=== PATIENT | male | born 1945 | race Caucasian/White ===

== ENCOUNTER 2018-09-30 00:58 | Inpatient (IN) | payer OTHER ==
[~2018-09-30] VITALS: Ht 152.4 cm; Wt 74.9 kg
[2018-09-30] MEDS ORDERED: NORVASC5 MG PO (03:00)
[2018-09-30] MEDS ORDERED: ASPIR 8181 MG PO (03:00)
[2018-09-30] MEDS ORDERED: VITAMIN D1000 UNI1 PO (03:00)
[2018-09-30] MEDS ORDERED: LISINOPRIL40 MG PO (03:01)
[2018-09-30] MEDS ORDERED: HYDROCHLOROTH12.5 M1 PO (03:01)
[2018-09-30] MEDS ORDERED: TOPROL XL100 MG PO (03:02)
[2018-09-30] MEDS ORDERED: CENTRUM SILVER1 EAC2 PO (03:02)
[2018-09-30] MEDS ORDERED: STIOLTO RESPIMAT4 GM INH (03:03)
[2018-09-30] MEDS ORDERED: CRESTOR20 MG PO (03:04)
--- NOTE | 2018-09-30 03:39 | NUR ---
PT ADMITTED PER CART FROM [facility]. FAMILY BROUGHT HIM TO ER DUE TO INCREASED CONFUSION AND MEMORY PROBLEMS. NO HX OF MENTAL PROBLEMS IN THE PAST. NO HX OF SUBSTANCE ABUSE. HE HAS NO PHYSICAL COMPLAINTS, AND DENIES ANY CHANGES IN DIET OR SLEEP PATTERN. CHANGES IN BEHAVIOR STARTED AT THE END OF AUGUST. PT ESCORTED AND DAUGHTER OUT OF THE HOUSE AND LOCKED THEM OUT. THEY TOOK CAR KEYS AWAY FROM HIM BECAUSE THIS CAUSED THEM CONCERN, IT WAS NEW BEHAVIOR. SETTLED PT IN ROOM, AND HE IS CURRENTLY SLEEPING.
[2018-09-30 07:00] VITALS: BP 126/68
--- NOTE | 2018-09-30 10:58 | NUR ---
RESTLESS/ANXIOUS THIS AM. PACING IN HALLWAYS-ASKING ABOUT SHOES SEVERAL TIMES DESPITE BEING INFORMED THAT THEY HAVE BEEN LOCKED UP D/T JEFF STATING A FEW MINUTES AFTER BEING TOLD THIS "THEY MUST BE IN MY ROOM THEY AREA THREE HUNDRED DOLLAR PAIR OF SHOES" ORIENTED TO DATE,PLACE-AWARE HE IS IN HOSPITAL BUT UNABLE/UNWILLING TO RECOUNT EVENTS LEADING TO HOSPITILIZATION STATING "ITS ALL REALLY FUZZY-I'M NOT SURE" DENIES C/O PAIN/DISCOMFORT"
[2018-09-30 22:15] VITALS: BP 137/74
--- NOTE | 2018-10-01 00:54 | NUR ---
PATIENT VERY CONFUSED AND THOUGHTS SCATTERED. WHEN FIRST ARRIVED ON SHIFT AND WENT AND SAW PATIENT HE HAD A SHORTS ON AND A TOWEL WRAPPED AROUND HIS WAIST IN HIS ROOM. HE STATES HE WAS GOING TO TAKE A SHOWER. HE WENT ON TO TALK AND STATED HE DIDN'T UNDERSTAND WHY HE NEEDED TO KEEP HIS DOOR OPEN WHEN HE IS STAYING IN A HOTEL. HE IS DISORIENTED TO PLACE, TIME AND SITUATION. AT MIDNIGHT PATIENT WALKED INTO A FEMALE PATIENT'S ROOM AND THOUGHT SHE WAS HIS . HE WAS RETRIEVED AND WALKED BACK TO HIS ROOM. HE DID NOT TOUCH OR HARM FEMALE PATIENT. HE STATES HE WAS GETTING HIS . I EXPLAINED TO HIM THAT SHE IS NOT HERE AT THE MOMENT AND HE IS IN THE HOSPITAL. TUCKED PATIENT BACK INTO BED AND HE FELL BACK TO SLEEP. PATIENT IS CONFUSED AND SKIPS FROM ONE THOUGHT TO ANOTHER AND THEN GOES BACK TO THINKING HE IS STAYING IN A HOTEL AND HE IS ON THE ROAD WORKING. WILL CONTINUE TO MONITOR.
--- NOTE | 2018-10-01 04:42 | NUR ---
PATIENT UP PACING IN ROOM. HE PUT HIS DAY CLOTHES ON AND THIS NURSE WALKED HIM OUT TO THE DINING ROOM. HE THEN DECIDED THERE WASN'T ANYTHING HE WANTED TO DO SO WALKED HIM BACK TO HIS ROOM AND HE LAID BACK DOWN TO SLEEP. PATIENT HAS HAD LOTS OF BROKEN SLEEP TONIGHT. HE HAS GOTTEN UP AT LEAST 4 TIMES AND WOULD GO BACK TO SLEEP WHEN PUT BACK IN BED BUT DOESN'T STAY ASLEEP LONG. PATIENT CONFUSED BUT COOPERATIVE AND EASILY REDIRECTED. CONTINUE TO MONITOR.
[2018-10-01 07:58] VITALS: BP 127/69
--- NOTE | 2018-10-01 11:55 | NUR ---
ASSUMED PATIENT CARE AT 0700. PATIENT UP TO DR PER SELF. ATE 100% OF BREAKFAST, COMPLIANT WITH MEDICATIONS. NO BEHAVIORS, ATTENDED AND PARTICIPATED IN GROUP THIS AM. READING BOOK WHILE SITTING AT DR TABLE AT THIS TIME, [facility].
[2018-10-01 20:16] VITALS: BP 181/76
--- NOTE | 2018-10-02 00:16 | NUR ---
PATIENT UP IN DAY ROOM INTERACTING WITH THREE OTHER PEERS STATING 'I HOPE I DONT MISS MY FLIGHT.' AFTER ONE TO ONE ENCOURAGEMENT TO TRY AND REST, THIS NURSE ADMINISTERED PRN TRAZODONE ORDERED FOR INSOMNIA.
--- NOTE | 2018-10-02 02:26 | NUR ---
NURSES NOTE - CARE OF PATIENT ACQUIRED AT 1900. UPON INITIAL GREETING HE APPEARS WITH A FLAT, BLUNT, CONSTRICTED AFFECT. DURING QUESTIONS AND PHYSICAL EXAM HE APPEARS CONFUSED, ALERT AND ORIENTED X1-2. HE HAS JOINED TWO OTHER PEERS AND HAVE BEEN UP MOST OF THE EVENING TALKING WITH OTHER PEERS. HE WILL MAKE STATEMENTS SAYING 'I DONT WANT TO BE LATE FOR THE PLANE.' OR OTHER STATEMENTS SUCH 'HOW FAR ARE WE FROM THE PLACE WE [place] GOING IN [place]." THIS NURSE TRIES TO REDIRECT AND GROUND PATIENT TO NO AVAIL. HE DENIES ANY MEDICAL CONCERNS WITH NO S/S OF DISTRESS. NURSING WILL MAINTAIN ALL PRECAUTIONS TO ENSURE SAFETY AT ALL TIMES.
--- NOTE | 2018-10-02 06:20 | NUR ---
PATIENT SLEPT 4 HOURS PER BOAT RIDE OPERATOR REPORT
[2018-10-02 13:50] VITALS: BP 132/75
--- NOTE | 2018-10-02 15:49 | NUR ---
ASSUMED PT CARE AT 0700. PT ALERT THOUGH CONFUSED WITH FLAT AFFECT. HAS NO COMPLAINTS, ATTENDS ALL GROUPS, TOOK ALL SCHEDULED MEDS SHIFT ASSESSMENT COMPLETE. WILL CONT POC.
--- NOTE | 2018-10-02 16:05 | EKG ---
[address] [address] ELECTROCARDIOGRAM REPORT Name: MAT GODOY [facility] M.R.[facility] [id number] ������������������ Admission: 09/30/18 ������������������ Attend Phys: Bhavesh Macedo DO Discharge: ������������������ Date of : 43 Report #: [id number] ����������������������������������������������������������������� [id number] THIS REPORT FOR: //name// [facility] Test Date: 2018-10-02 Test Time: 08:54:54 Pat Name: MAT GODOY Department: Room: [facility] B Gender: M Child Development Consultant: JOSE E : 1945 Requested By: Bhavesh Macedo Order Number: [id number] MD: Feliciano Nelson Measurements Intervals [place] Rate: 93 P: 220 WI: 148 QRS: -44 QRSD: 102 T: 60 QT: 424 QTc: 528 Interpretive Statements Sinus rhythm. Left axis deviation No previous ECG available for comparison Electronically Signed On 10-02-2018 16:05:43 CDT by Feliciano Nelson [email or web address] ��������������������������������������������� <ELECTRONICALLY SIGNED> ���������������������������������������� By: Feliciano Nelson MD ��������������������������������������������� 10/02/18 1605 0854 3 Feliciano Nelson MD /VIC
--- NOTE | 2018-10-02 16:56 | NUR ---
SW schedule a family meeting on October 03, 2018. SW will follow-up with pt.
[2018-10-02 18:24] LABS: HEMATOCRIT 41.2 % (42.0-52.0); HEMOGLOBIN 13.7 gm/dL (14.0-18.0); MCH 29.8 pg (26.0-34.0); MCHC 33.3 g/dL (28.0-37.0); MCV 89.4 fL (80.0-100.0); RBC 4.6 mil/uL (4.50-6.00); RDW 13.2 % (10.5-14.5); WBC 10.1 thou/uL (4.0-11.0)
[2018-10-02 18:33] LABS: CALCIUM 9.5 mg/dL (8.5-10.1); CREATININE 1.7 mg/dL (0.7-1.3); MAGNESIUM 2.1 mg/dL (1.8-2.4); POTASSIUM 4.6 mmol/L (3.5-5.1)
[2018-10-02 19:47] VITALS: BP 118/53
--- NOTE | 2018-10-03 03:52 | NUR ---
NURSES NOTE - PATIENT IS ALERT AND ORIENTED X2-3 HE IS CALM AND COOPERATIVE AND APPEARS WITH A BRIGHT AFFECT DURING INITIAL GREETING. HE DENIES FEELINGS OF DEPRESSION ET ANXIETY, DENIES SI HI SH WELL AH VH. HE HAS SPENT MUCH OF THE SHIFT IN HIS ROOM AND IN BED. HE STATES 'IM JUST RELAXING.' HE REPORTS GOOD SLEEP AND APPETITE. HE DENIES MEDICAL CONCERNS, MED COMPLIANT, NO S/S OF DISTRESS. NURSING WILL MAINTAIN ALL SAFETY PRECAUTIONS TO ENSURE SAFETY AT ALL TIMES.
--- NOTE | 2018-10-03 06:07 | NUR ---
PATIENT SLEPT 9 HOURS PER WOOL HANKER
[2018-10-03 06:14] LABS: HEMATOCRIT 37.8 % (42.0-52.0); HEMOGLOBIN 12.6 gm/dL (14.0-18.0); MCHC 33.3 g/dL (28.0-37.0); MCV 90.1 fL (80.0-100.0); RBC 4.19 mil/uL (4.50-6.00); RDW 13.1 % (10.5-14.5)
[2018-10-03 06:26] LABS: CALCIUM 9.1 mg/dL (8.5-10.1); CREATININE 2.3 mg/dL (0.7-1.3)
[2018-10-03 06:27] LABS: POTASSIUM 5.3 mmol/L (3.5-5.1)
[2018-10-03 08:24] VITALS: BP 114/66
--- NOTE | 2018-10-03 16:41 | NUR ---
0700: Report rec from noc shift, care assumed. 0800: Ambulatory independently to DR, gait steady. Mood is cheerful, pleasant and cooperative with staff, feeds self, appetite good, consumed 100% of meal. Takes meds whole w/o difficulty.
[2018-10-03 19:25] VITALS: BP 115/71
--- NOTE | 2018-10-03 23:19 | NUR ---
PT TALKING IN ROOM WITH PEER. COMPLIANT WITH HS MEDS AND HS SNACK. PT REQUESTED TO CALL HIS AND WHEN HE DID, HE ASKED FOR A RIDE HOME. PT WAS ABLE TO BE REDIRECTED TO WAIT TO GO HOME UNTIL THE MORNING. [facility] CONTACT, APPROPRIATE FACIAL EXPRESSIONS, AMBULATORY GAIT STEADY.
[2018-10-04 06:06] LABS: HEMATOCRIT 37.3 % (42.0-52.0); HEMOGLOBIN 12.5 gm/dL (14.0-18.0); MCH 29.9 pg (26.0-34.0); MCHC 33.4 g/dL (28.0-37.0); MCV 89.7 fL (80.0-100.0); RBC 4.16 mil/uL (4.50-6.00); RDW 13.1 % (10.5-14.5); WBC 6.8 thou/uL (4.0-11.0)
[2018-10-04 06:24] LABS: CALCIUM 9.4 mg/dL (8.5-10.1); CREATININE 1.4 mg/dL (0.7-1.3); MAGNESIUM 1.9 mg/dL (1.8-2.4); POTASSIUM 5.4 mmol/L (3.5-5.1)
--- NOTE | 2018-10-04 09:46 | NUR ---
0700: Report rec from noc shift, care assumed. 0900: Independently ambulatory to DR, gait steady, feeds self, appetite fair, consumed 50% of meal, takes meds whole w/o difficulty. Denies pain or discomfort @ this time. Declines 0900 therapy group, returned to room ambulatory, resting in bed @ this time.
--- NOTE | 2018-10-04 16:56 | NUR ---
SW spoke with pt's and she stated that she was looking for memory care placement for her . She was also looking for the results of the neuro[sych testing , but this has not been documented yet.
[2018-10-04 19:37] VITALS: BP 110/64
--- NOTE | 2018-10-04 21:39 | NUR ---
PT RESTING IN BED UPON ADMISSION. COMPLLIANT WITH HS SNACK AND MEDS. SMILING [facility] E[facility] CONTACT. SHARED WITH NURSE HE DID NOT LIKE SWALLOWING HIS LIQUID MEDICATION GIVEN TO HIM EARLIER IN SHIFT. GAIT STEADY
--- NOTE | 2018-10-05 01:10 | NUR ---
PT AWAKENED TO URINATE AND WANDERED INTO ANOTHERS ROOM BUT WAS REDIRECTED.
[2018-10-05 06:36] LABS: CALCIUM 9.1 mg/dL (8.5-10.1); CREATININE 1.2 mg/dL (0.7-1.3); MAGNESIUM 1.9 mg/dL (1.8-2.4); POTASSIUM 5.1 mmol/L (3.5-5.1)
[2018-10-05 07:00] VITALS: BP 157/80
--- NOTE | 2018-10-05 15:38 | NUR ---
SW sent referral to [facility] [phone] per family request
--- NOTE | 2018-10-05 17:15 | NUR ---
Sw spoke with family and they received the neuro testing report, and sw sent this to [facility]. They are ready to assist with this d/c and will provide transportation when needed. They reported that [facility] will be sending a rep out to do an eval on Monday.
--- NOTE | 2018-10-05 18:07 | NUR ---
ASSUMED CARE AT 0700 THIS MORNING. HAS BEEN PLEASANT AND COOPERATIVE WITH STAFF AND PEERS. HAS EATEN ALL MEALS ON THE UNIT, TAKEN HIS MEDS WITHOUT PROBLEMS, AND ATTENDED GROUPS. HE HAS NOT MADE ANY SI STATEMENTS TODAY. HE HAS NOT BEEN NOTED TO [facility] TODAY OR [facility]. HAS AMBULATED IN THE HALLS ALL DAY WITH A PEER.
[2018-10-05 19:54] VITALS: BP 156/81
--- NOTE | 2018-10-05 23:18 | NUR ---
Care assumed of patient at 1900: Patient alert and oriented to person and situation. Patient states that he is admitted at this time because "my memory needs a little help". Patient is confused and forgetful at times. Patient overall appears happy and cooperative. Patient seemed a bit suspicious and perplexed when he asked which door he could use to go home. It was explained that he was in the hospital and the doctor didn't feel he was ready to be discharged yet. Patient stated, "well we will see, don't be worried if I'm not here tomorrow". Patient took medication whole without difficulty. Patient pacing from room to dining room several times prior to bed time. Patient denies SI/HI/AH/VH. No s/s of delusional or paranoia behaviors. No aggressive episodes observed. Patient resting quietly in bed at this time.
[2018-10-06 06:09] LABS: CALCIUM 9.2 mg/dL (8.5-10.1); CREATININE 1.1 mg/dL (0.7-1.3); MAGNESIUM 1.6 mg/dL (1.8-2.4); POTASSIUM 4.5 mmol/L (3.5-5.1)
--- NOTE | 2018-10-06 09:44 | NUR ---
[id number]: Report rec from noc shift, care assumed. Pt awake, independent with ADL's with guidance needed for tasks, cooperative with staff, mood pleasant, confused to place and time, oriented to name. Ambulatory independently to DR, feeds self, appeitite poor, consumed approx 25% of meal, takes meds whole w/o difficulty. Attending 0900 therapy group with maximal participation noted.
--- NOTE | 2018-10-06 12:14 | NUR ---
SW spoke with pt's spouse and revisited the D/C plan that will likely be on Monday after Vel Wagoner visits this pt on Monday and accepts him. The family will be providing the transportation. Sw provided support and guidance for the transition into memory care.
[2018-10-06 17:23] VITALS: BP 128/79
[2018-10-06 20:25] VITALS: BP 149/79
--- NOTE | 2018-10-07 02:08 | NUR ---
Care assumed of patient at 1900: Patient alert and oriented to person and situation. Confusion noted with place and time. Patient states that he is needing help with his memory. Patient calm and pleasant. Patient was fixated on his wallet this shift. Patient was assisted in calling his to be reassured that his wallet and ID is at home. Patient soon forgot then started to worry about it again. Patient took medication whole without difficulty. Patient restless and ambulating from room to day room. Patient wandering halls at times. Only able to lay down and rest for approximately 30 minutes then is up pacing again. Patient able to be re-directed on current time and re-directed to bed at this time.
[2018-10-07 05:55] LABS: CALCIUM 9.4 mg/dL (8.5-10.1); CREATININE 1.1 mg/dL (0.7-1.3); MAGNESIUM 1.8 mg/dL (1.8-2.4); POTASSIUM 4.2 mmol/L (3.5-5.1)
[2018-10-07 09:39] VITALS: BP 147/81
--- NOTE | 2018-10-07 15:02 | NUR ---
0700: Report rec from [facility] shift, care assumed. [id number]: Ambulatory independentlyin morales and to , gait steady. Feeds self with set up assist, appetite good, takes meds whole w/o difficulty. Mood is pleasant, affect slightly flat, cooperative with staff and other pts. Attends therapy group with 100% participation. Denies pain or discomfort, oriented to name and knows he is in a hospital, but unable to name it. [id number]: Visitor here to see pt.
--- NOTE | 2018-10-07 15:16 | NUR ---
JAN sent updates to [facility] [phone]
--- NOTE | 2018-10-07 16:43 | NUR ---
Date of Admission: 09/30/18 Date of Activity Therapy Assessment: 10/07/18 Activity Goal: Increase stimulation Initial Goal: 2 Group activities/day Weekly progress towards goal: On track Group participation level: Moderate Behaviors observed: No behaviors observed in groups Plan: No change towards goal
[2018-10-07 19:53] VITALS: BP 138/83
--- NOTE | 2018-10-08 02:21 | NUR ---
PT AMBULATING TO BATHROOM INDEPENDENTLY AND IS TOLERATING FAIR. DENIES PAIN. RESTING COMFORTABLY. NO NEEDS VOICED. WILL CONTINUE TO PROVIDE FREQUENT OBSERVATION.
[2018-10-08 06:11] LABS: CALCIUM 9.5 mg/dL (8.5-10.1); POTASSIUM 4.5 mmol/L (3.5-5.1)
[2018-10-08 07:00] VITALS: BP 144/71
[2018-10-08 12:15] VITALS: BP 144/71
--- NOTE | 2018-10-08 15:43 | NUR ---
VERY PLEASANT AND COOPERATIVE. EKG DONE. HAS TROUBLE FINDING WORDS AT TIMES. UP INDEPENDENTLY AND TOLERATING WELL. WALKS FREQUENTLY. CALM AND COOPERATIVE. A&O X 4. INSIGHT TO WHY HE IS HERE IS LACKING. HIS MAIN GOAL IS TO GO HOME AND SHOW HIS HE CAN TAKE CARE OF HIMSELF. STATES FEELING HAPPY. HAD BM TODAY. EATING ALL OF MEALS IN DINING ROOM. STEADY GAIT NOTED. DENIED PAIN.
--- NOTE | 2018-10-08 17:39 | NUR ---
Pt has been was accepted to [facility] and set for discharge 10/09/2018. Pt's family stated they would like Pt to be discharged by 10:45 am as they will be transporting him. Sw informed Pt will be ready for discharge at the given time.
[2018-10-08 19:19] VITALS: BP 136/79
--- NOTE | 2018-10-08 19:57 | NUR ---
ASSUMED CARE OF THE PT AT 191 PM. ALERT ET ORIENTED X 2. WALKS WITH A STEADY GAIT. HEART RATE REGULAR, LUNGS CLEAR BILATERALLY, RESP., EVEN, AND UNLABORED. +BS HEARD IN ALL 4 QUADRANTS. ABD SOFT ET NONTENDOR. +PP BILATERALLY. DENIES ANXIETY, DEPRESSION, SI/HI, A/V HALLUNICATONS. REMAINS ON 12 MINUTE CHECKS FOR HIS SAFETY.
[2018-10-09 09:10] VITALS: BP 154/82
[2018-10-09] MEDS ORDERED: IPRATROPIU0.2 MG/1 M INH (09:58)
[2018-10-09] MEDS ORDERED: LIPITOR40 MG PO (09:58)
[2018-10-09] MEDS ORDERED: NORVASC5 MG PO (09:59)
[2018-10-09] MEDS ORDERED: ACCUPRIL40 MG PO (10:00)
[2018-10-09] MEDS ORDERED: ASPIR 8181 MG PO (10:00)
[2018-10-09] MEDS ORDERED: HYDROCHLOROTH12.5 M1 PO (10:01)
[2018-10-09] MEDS ORDERED: VITAMIN D1000 UNI1 PO (10:01)
[2018-10-09] MEDS ORDERED: METOPROLOL SUCC50 MG PO (10:02)
--- NOTE | 2018-10-09 11:04 | NUR ---
Patient Name: MAT GODOY Admission Date: 09/30/18 DISCHARGE PLAN: Pt will be d/c to [facility]. Care Assessment: Pt was assessed by Dr. 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 Level II Assessment: None Transportation: Pt will be transported by his daughter to . Special Instructions/Notes: Pt will need a memory care unit DISCHARGE TO FACILITY: Memory Care setting Facility: [facility] Fax: Address: [address] [place] [address] Contact Name: Admission Coordiantor PCP: CANDIDA Psychiatrist: ALEJANDRA Psychiatrist
--- NOTE | 2018-10-09 12:07 | NUR ---
PT A&OX2, VSS, DENIES HI/SI. BEHAVIOR HAS BEEN COOPERATIVE AND PATIENT HAS BEEN SMILING AND EAGER TO DISCHARGE. PATIENT DISCHARGED TO [facility]. AND DAUGHTER CAME UP TO DISCHARGE PATIENT TO FACILITY. PATIENT HAS ALL BELONGINGS, FAMILY HAS DISCHARGE PAPERWORK TO GIVE TO FACILITY. MEDICATIONS CALLED IN TO [facility].
--- NOTE | 2018-10-10 07:39 | EKG ---
[address] [place] [address] [facility] [place] [address] ELECTROCARDIOGRAM REPORT Name: MAT GODOY Room #: [facility] DIS IN M.R.#: [id number] ������������������ Admission: 09/30/18 ������������������ Attend Phys: Bhavesh Macedo DO Discharge: 10/09/18 ������������������ Date of : 43 Report #: [id number] ����������������������������������������������������������������� [id number] THIS REPORT FOR: //name// [facility] Test Date: 2018-10-08 Test Time: 15:09:05 Pat Name: MAT GODOY Department: Room: [facility] Gender: M Room Service Runner: Manfred MEDINA : 1945 Requested By: Bhavesh Macedo Order Number: [id number] MD: Jerry Barboza Measurements Intervals [place] Rate: 71 P: 0 CA: 206 QRS: -48 QRSD: 121 T: 58 QT: 400 QTc: 435 Interpretive Statements Sinus rhythm with first-degree AV block Left anterior hemiblock Compared to ECG 10/02/2018 08:54:54 No significant change was found Electronically Signed On 10-10-2018 7:39:05 CDT by Jerry Barboza [email or web address] ��������������������������������������������� <ELECTRONICALLY SIGNED> ���������������������������������������� By: Jerry Barboza MD, [facility] ��������������������������������������������� 10/10/18 0739 [id number] [id number] Jerry Barboza MD, [facility] /EPI
--- NOTE | 2018-10-10 09:31 | D ---
[facility] [place] [address] DISCHARGE SUMMARY Name: MAT GODOY Room #: [facility] IN M.R.#: [id number] Admission: 09/30/18 ������������������ Attend Phys: Bhavesh Macedo DO Discharge: 10/09/18 ������������������ Date of : 43 Report #: [id number] THIS REPORT FOR: //name// CC: Bhavesh Macedo Ashu Dao DATE OF SERVICE: 10/09/2018 INPATIENT PSYCHIATRIC DISCHARGE SUMMARY ATTENDING: Bhavesh Macedo DO OXYGRAPH OPERATOR AT THE TIME OF DISCHARGE: Sammy Higgins MD DISCHARGE DIAGNOSES: Major neurocognitive disorder with behavioral disturbance, likely due to Alzheimer disease, improved. Medical comorbidities include hypertension, blood pressure well controlled; chronic obstructive pulmonary disease, no breathing issues, continue inhalers. DISCHARGE PLAN: He is being discharged to [facility] for memory care. Psychiatric and medical care to be provided at that facility. DIET: Regular. ACTIVITY LEVEL: As tolerated. DISCHARGE MEDICATIONS: Multivitamin oral p.o. daily; ipratropium bromide inhaled 0.5 mg every 8 hours; atorvastatin 40 mg oral daily for hyperlipidemia; metoprolol succinate 100 mg oral daily for hypertension; Norvasc 5 mg p.o. daily for hypertension, hold blood pressure medication for systolic BP less than 100; lisinopril 40 mg oral daily; aspirin 81 mg chewable daily for cardioprotection; hydrochlorothiazide 12.5 mg oral daily; cholecalciferol vitamin D 1000 international units oral daily. LABORATORY DATA: From this admission 10/08/2018; BMP was within normal limits except for sodium slightly low at 135. CBC on 10/05/2018, white count 6.8, H and H 12.5 and 37.3, and platelet count 231. REASON FOR ADMISSION: Brought in by his , come in to get checked up. He was transferred from [facility], who had been acting differently since August. Néstor Cognitive Assessment was 12/17 at time of admission to [facility]. HOSPITAL COURSE: The patient was admitted to the Geriatric Psychiatry Unit. During the course of hospitalization, the patient was found to have a major neurocognitive disorder. Neuropsychological testing was conducted by Dr. Ceron, which found a major neurocognitive disorder, possible Alzheimer disease [address] [address] DISCHARGE SUMMARY Name: MAT GODOY Room #: [facility] IN ..#: [id number] Admission: 09/30/18 ������������������ Attend Phys: Bhavesh Macedo DO Discharge: 10/09/18 ������������������ Date of : 43 Report #: [id number] with poor insight of moderate severity. He had [id number] impairment in language, severe impairment in attention and memory. Severe impairment in learning and memory. Severe impairment in visual spatial perception ability, severe impairment in aspects of executive functioning, which is most consistent with Alzheimer disease presentation. Vital signs on the day of discharge, pulse 81, BP 154/82. He is afebrile. This is a well-developed, fairly nourished male appearing stated age. Attention limited. Concentration limited. Speech is normal in rate and volume. Thought process is linear and goal directed. Thought content focused on discharge, confused about where he is going. No significant agitation. No significant retardation. Mood and affect is congruent, euthymic, fair range. Denied SI and HI. Denied hopelessness or helplessness. Memory not formally tested. Insight limited. Judgment limited. Fund of knowledge well below average. Prognosis for this patient is guarded given age of 73, having Alzheimer's related dementia, probable moderate severity. ��������������������������������������������� <ELECTRONICALLY SIGNED> ���������������������������������������� By: Bhavesh Macedo, ��������������������������������������������� 10/10/18 0931 [id number] Bhavesh Macedo DO /nt
== END 2018-10-09 11:41 | DRG 57 ==
LOC: SBH
PROVIDERS: Internal Medicine; ADMIT Psychiatry & Neurology Psychiatry
DX: G30.9 Alzheimer's disease, unspecified (principal); F02.81 Dementia in other diseases classified elsewhere, unspecified severity, with behavioral disturbance; N17.9 Acute kidney failure, unspecified; E11.51 Type 2 diabetes mellitus with diabetic peripheral angiopathy without gangrene; I10 Essential (primary) hypertension; J44.9 Chronic obstructive pulmonary disease, unspecified; I25.10 Atherosclerotic heart disease of native coronary artery without angina pectoris; E78.5 Hyperlipidemia, unspecified; Z95.5 Presence of coronary angioplasty implant and graft; Z95.820 Peripheral vascular angioplasty status with implants and grafts; Z87.891 Personal history of nicotine dependence; Z79.899 Other long term (current) drug therapy
CPT/HCPCS: 10880